=== PATIENT | male | born 1930 | race Caucasian/White ===

== ENCOUNTER 2016-12-10 07:28 | Inpatient (IN) | payer OTHER ==
[2016-12-10] VITALS (7 sets, daily range): BP systolic 95–143; BP diastolic 52–105
[~2016-12-10] VITALS: Ht 167.6 cm; Wt 63.9 kg
[~2016-12-10 07:28] MED LIST: ASPIR 8181 M1 PO; ATIVAN0.5 MG PO; LISINOPRIL30 MG PO; METFORMIN HCL500 MG PO; METOPROLOL TART25 MG PO; SIMVASTATIN10 MG PO
[2016-12-10 07:57] LABS: POINT-OF-CARE METER ID UU13113702
[2016-12-10 09:38] LABS: HEMATOCRIT 44.1 % (38.0-50.0); MCV 97.1 FL (86-99); MEAN PLAT.VOLUME 10.1 uM^3 (9.0-12.4); PLATELET COUNT 181 K/uL (156-360); RBC DIS.WIDTH-CV 12.7 % (11.8-14.6); RBC DIS.WIDTH-SD 45.2 % (39-53); RED BLOOD COUNT 4.54 M/uL (4.00-5.50); WHITE BLOOD COUNT 12.8 K/uL (4.1-10.2)
[2016-12-10 09:51] LABS: CHLORIDE 104 mEq/L (99-109); POTASSIUM 4.1 mEq/L (3.7-5.4); SODIUM 139 mEq/L (136-147)
[2016-12-10 09:53] LABS: GLUCOSE 156 mg/dL (70-99)
[2016-12-10 09:54] LABS: ANION GAP 7 MEQ/L (2-14)
[2016-12-10 09:55] LABS: TOTAL BILIRUBIN 2.1 mg/dL (0.0-1.0)
[2016-12-10 09:56] LABS: ALKALINE PHOSPHATASE 109 IU/L (3-129)
[2016-12-10 09:57] LABS: GFR ESTIMATE (CALCULATED) > 59 mL/min/
[2016-12-10 09:58] LABS: UREA NITROGEN (BUN) 10 mg/dL (9-23)
[2016-12-10 13:54] LABS: TROP-I INTERPRETATION NEGATIVE; TROPONIN-I 0.01 ng/mL (0.0-0.30)
[2016-12-10] MEDS ORDERED: CLONAZEPAM1 MG PO (13:57)
[2016-12-10] MEDS ORDERED: METOPROLOL SUCC25 MG PO (13:57)
[2016-12-10] MEDS ORDERED: SIMVASTATIN40 MG PO (13:57)
[2016-12-10] MEDS ORDERED: LITE COAT ASPI325 M1 PO (13:58)
[2016-12-10] MEDS ORDERED: PRINIVIL10 MG PO (13:58)
[2016-12-10] MEDS ORDERED: CENTRUM MEN'S1 EACH PO (13:59)
[2016-12-10 18:20] LABS: METH RESISTANT S AUREUS PCR NEGATIVE (NEGATIVE)
[2016-12-10 18:52] LABS: PROBE CHECK PASS; SPECIMEN PROCESSING CONTROL PASS
[2016-12-11] VITALS (19 sets, daily range): BP systolic 93–147; BP diastolic 45–87
[2016-12-11 06:24] LABS: EOSINOPHIL (%) 0.2 % (0-5); HEMATOCRIT 36.7 % (38.0-50.0); IMMATURE GRANULOCYTE (%) 0.3 % (0.0-0.7); INSTRUMENT ABS NEUTROPHIL CT 7.4 K/uL; LYMPHOCYTE COUNT 1.2 K/uL (1.0-2.8); MCH 32.8 PG (29.0-34.0); MCHC 33.5 G/DL (30.0-36.0); MCV 97.9 FL (86-99); MEAN PLAT.VOLUME 10.6 uM^3 (9.0-12.4); MONOCYTE COUNT 1.1 K/uL (0-0.8); NEUTROPHIL (%) 76.1 % (45-76); NEUTROPHIL COUNT 7.4 K/uL (1.8-6.4); PLATELET COUNT 156 K/uL (156-360); RBC DIS.WIDTH-CV 13.1 % (11.8-14.6); RBC DIS.WIDTH-SD 46.5 % (39-53); RED BLOOD COUNT 3.75 M/uL (4.00-5.50); WHITE BLOOD COUNT 9.8 K/uL (4.1-10.2)
[2016-12-11 06:30] LABS: ALKALINE PHOSPHATASE 95 IU/L (3-129); ANION GAP 7 MEQ/L (2-14); CHLORIDE 104 MEQ/L (99-109); DIRECT BILIRUBIN 0.6 mg/dL (0.0-0.3); GFR ESTIMATE (CALCULATED) > 59 mL/min/; GLUCOSE 170 mg/dL (70-99); POTASSIUM 4.3 MEQ/L (3.7-5.4); SAMPLE HEMOLYSIS CHECK 0; SAMPLE ICTERIC CHECK 1; SAMPLE LIPEMIA CHECK 0; SODIUM 138 MEQ/L (136-147); TOTAL BILIRUBIN 3.2 MG/DL (0.0-1.0); UREA NITROGEN (BUN) 11 mg/dL (9-23)
[2016-12-11 16:50] LABS: POINT-OF-CARE METER ID UU14174217
[2016-12-11 21:54] LABS: POINT-OF-CARE METER ID UU14149397
[2016-12-12] VITALS (7 sets, daily range): BP systolic 112–141; BP diastolic 64–78
[2016-12-12 05:54] LABS: GFR ESTIMATE (CALCULATED) > 59 mL/min/; UREA NITROGEN (BUN) 9 mg/dL (9-23)
[2016-12-12 12:09] LABS: POINT-OF-CARE METER ID UU14188577
[2016-12-12 16:13] LABS: BASE EXCESS -1.1 mEq/L (-3 to +3); BICARBONATE 22.2 mEq/L (22-26); CARBOXY HGB 2.6 % (0-5); METHEMOGLOBIN 1.8 % (0-1.5); PCO2 32 mm Hg (35-45); PO2 190 mm Hg (80-100); pH 7.45 (7.35-7.45)
[2016-12-12 16:14] LABS: COMMENTS - BLOOD GASES AC+; DEVICE NRBM; FI02 100 %; SITE RR
[2016-12-12 16:58] LABS: TROP-I INTERPRETATION POSITIVE
[2016-12-12 23:26] LABS: TROP-I INTERPRETATION POSITIVE
[2016-12-13 03:34] VITALS: BP 120/67
[2016-12-13 06:30] LABS: EOSINOPHIL (%) 0.6 % (0-5); EOSINOPHIL COUNT 0.1 K/uL (0-0.3); HEMATOCRIT 32.6 % (38.0-50.0); IMMATURE GRANULOCYTE (%) 0.4 % (0.0-0.7); INSTRUMENT ABS NEUTROPHIL CT 8.5 K/uL; LYMPHOCYTE COUNT 0.7 K/uL (1.0-2.8); MCH 33.9 PG (29.0-34.0); MCHC 35.6 G/DL (30.0-36.0); MCV 95.3 FL (86-99); MEAN PLAT.VOLUME 10.8 uM^3 (9.0-12.4); MONOCYTE (%) 10.8 % (3-12); MONOCYTE COUNT 1.1 K/uL (0-0.8); NEUTROPHIL (%) 80.8 % (45-76); NEUTROPHIL COUNT 8.5 K/uL (1.8-6.4); PLATELET COUNT 157 K/uL (156-360); RBC DIS.WIDTH-CV 12.8 % (11.8-14.6); RBC DIS.WIDTH-SD 44.5 % (39-53); RED BLOOD COUNT 3.42 M/uL (4.00-5.50); WHITE BLOOD COUNT 10.5 K/uL (4.1-10.2)
[2016-12-13 07:00] LABS: ANION GAP 8 MEQ/L (2-14); CHLORIDE 98 MEQ/L (99-109); GFR ESTIMATE (CALCULATED) > 59 mL/min/; GLUCOSE 146 mg/dL (70-99); POTASSIUM 3.5 MEQ/L (3.7-5.4); SAMPLE HEMOLYSIS CHECK 0; SAMPLE ICTERIC CHECK 1; SAMPLE LIPEMIA CHECK 0; SODIUM 134 MEQ/L (136-147); UREA NITROGEN (BUN) 13 mg/dL (9-23)
[2016-12-13 07:02] LABS: TROP-I INTERPRETATION POSITIVE; TROPONIN-I 5.39 ng/mL (0.0-0.30)
[2016-12-13 07:51] VITALS: BP 131/73
[2016-12-13 08:08] LABS: POINT-OF-CARE METER ID UU13113781
[2016-12-13 11:23] VITALS: BP 123/70
[2016-12-13 15:30] VITALS: BP 128/74
[2016-12-13 16:16] LABS: TROP-I INTERPRETATION POSITIVE; TROPONIN-I 4.56 ng/mL (0.0-0.30)
[2016-12-13 16:40] LABS: POINT-OF-CARE METER ID UU13113781
[2016-12-13 19:15] VITALS: BP 138/87
[2016-12-13 21:15] LABS: POINT-OF-CARE METER ID UU13113781
[2016-12-13 23:20] VITALS: BP 142/77
[2016-12-13 23:52] LABS: TROPONIN-I 4.37 ng/mL (0.0-0.30)
[2016-12-13 23:53] LABS: TROP-I INTERPRETATION POSITIVE
[2016-12-14 03:10] VITALS: BP 143/71
[2016-12-14 06:52] LABS: EOSINOPHIL (%) 0.7 % (0-5); EOSINOPHIL COUNT 0.1 K/uL (0-0.3); HEMATOCRIT 35.9 % (38.0-50.0); IMMATURE GRANULOCYTE (%) 0.5 % (0.0-0.7); IMMATURE GRANULOCYTE COUNT 0.1 K/uL; INSTRUMENT ABS NEUTROPHIL CT 8.1 K/uL; LYMPHOCYTE COUNT 0.5 K/uL (1.0-2.8); MCH 33.3 PG (29.0-34.0); MCHC 34.8 G/DL (30.0-36.0); MCV 95.7 FL (86-99); MEAN PLAT.VOLUME 10.8 uM^3 (9.0-12.4); MONOCYTE (%) 10.2 % (3-12); NEUTROPHIL (%) 83.6 % (45-76); NEUTROPHIL COUNT 8.1 K/uL (1.8-6.4); PLATELET COUNT 181 K/uL (156-360); RBC DIS.WIDTH-CV 12.7 % (11.8-14.6); RBC DIS.WIDTH-SD 44.4 % (39-53); RED BLOOD COUNT 3.75 M/uL (4.00-5.50); WHITE BLOOD COUNT 9.7 K/uL (4.1-10.2)
[2016-12-14 07:19] VITALS: BP 127/76
[2016-12-14 07:22] LABS: ANION GAP 13 MEQ/L (2-14); CHLORIDE 98 MEQ/L (99-109); GFR ESTIMATE (CALCULATED) > 59 mL/min/; GLUCOSE 161 mg/dL (70-99); POTASSIUM 3.4 MEQ/L (3.7-5.4); SAMPLE HEMOLYSIS CHECK 0; SAMPLE ICTERIC CHECK 1; SAMPLE LIPEMIA CHECK 0; SODIUM 139 MEQ/L (136-147); UREA NITROGEN (BUN) 20 mg/dL (9-23)
[2016-12-14 07:26] LABS: TROP-I INTERPRETATION POSITIVE; TROPONIN-I 3.18 ng/mL (0.0-0.30)
[2016-12-14 08:13] LABS: POINT-OF-CARE METER ID UU13113781
[2016-12-14 11:50] VITALS: BP 110/61
[2016-12-14 15:52] LABS: TROP-I INTERPRETATION POSITIVE; TROPONIN-I 3.22 ng/mL (0.0-0.30)
[2016-12-14 19:00] VITALS: BP 163/78
[2016-12-14 23:20] VITALS: BP 138/64
[2016-12-15 03:05] VITALS: BP 119/63
[2016-12-15 06:44] LABS: EOSINOPHIL (%) 2.7 % (0-5); EOSINOPHIL COUNT 0.2 K/uL (0-0.3); HEMATOCRIT 38.2 % (38.0-50.0); IMMATURE GRANULOCYTE (%) 0.3 % (0.0-0.7); INSTRUMENT ABS NEUTROPHIL CT 6.5 K/uL; LYMPHOCYTE COUNT 0.9 K/uL (1.0-2.8); MCH 33.4 PG (29.0-34.0); MCHC 34.8 G/DL (30.0-36.0); MEAN PLAT.VOLUME 10.5 uM^3 (9.0-12.4); MONOCYTE (%) 12.7 % (3-12); MONOCYTE COUNT 1.1 K/uL (0-0.8); NEUTROPHIL (%) 73.4 % (45-76); NEUTROPHIL COUNT 6.5 K/uL (1.8-6.4); PLATELET COUNT 233 K/uL (156-360); RBC DIS.WIDTH-CV 12.9 % (11.8-14.6); RBC DIS.WIDTH-SD 44.8 % (39-53); RED BLOOD COUNT 3.98 M/uL (4.00-5.50); WHITE BLOOD COUNT 8.8 K/uL (4.1-10.2)
[2016-12-15 07:12] LABS: ANION GAP 11 MEQ/L (2-14); CHLORIDE 99 MEQ/L (99-109); GFR ESTIMATE (CALCULATED) > 59 mL/min/; GLUCOSE 140 mg/dL (70-99); POTASSIUM 3.4 MEQ/L (3.7-5.4); SAMPLE HEMOLYSIS CHECK 0; SAMPLE ICTERIC CHECK 1; SAMPLE LIPEMIA CHECK 0; SODIUM 140 MEQ/L (136-147); UREA NITROGEN (BUN) 21 mg/dL (9-23)
[2016-12-15 07:38] VITALS: BP 125/79
[2016-12-15 12:11] VITALS: BP 125/66
[2016-12-15 15:57] VITALS: BP 129/67
[2016-12-15 18:09] VITALS: BP 109/71
[2016-12-15 23:15] VITALS: BP 168/88
[2016-12-16 04:20] VITALS: BP 150/93
[2016-12-16 05:12] LABS: CHLORIDE 104 mEq/L (99-109); SODIUM 143 mEq/L (136-147)
[2016-12-16 05:15] LABS: GLUCOSE 153 mg/dL (70-99)
[2016-12-16 05:16] LABS: ANION GAP 13 MEQ/L (2-14)
[2016-12-16 05:17] LABS: MEAN PLAT.VOLUME 10.5 uM^3 (9.0-12.4); PLATELET COUNT 275 K/uL (156-360); RBC DIS.WIDTH-SD 46.3 % (39-53); RED BLOOD COUNT 4.33 M/uL (4.00-5.50); WHITE BLOOD COUNT 10.7 K/uL (4.1-10.2)
[2016-12-16 05:18] LABS: ALKALINE PHOSPHATASE 115 IU/L (3-129); GFR ESTIMATE (CALCULATED) > 59 mL/min/
[2016-12-16 05:19] LABS: UREA NITROGEN (BUN) 25 mg/dL (9-23)
[2016-12-16 05:20] LABS: TOTAL BILIRUBIN 3.8 mg/dL (0.0-1.0)
[2016-12-16 05:28] LABS: TROP-I INTERPRETATION POSITIVE; TROPONIN-I 1.12 ng/mL (0.0-0.30)
[2016-12-16 07:52] VITALS: BP 111/70
[2016-12-16 10:12] LABS: TROPONIN-I 1.03 ng/mL (0.0-0.30)
[2016-12-16 10:13] LABS: TROP-I INTERPRETATION POSITIVE
[2016-12-16 16:37] VITALS: BP 124/64
[2016-12-16 17:53] LABS: TROP-I INTERPRETATION POSITIVE; TROPONIN-I 0.85 ng/mL (0.0-0.30)
[2016-12-16 20:25] VITALS: BP 123/73
[2016-12-17] VITALS (7 sets, daily range): BP systolic 101–165; BP diastolic 61–81
[2016-12-17 04:59] LABS: BASOPHIL COUNT 0.1 K/uL (0-0.1); EOSINOPHIL (%) 4.4 % (0-5); EOSINOPHIL COUNT 0.4 K/uL (0-0.3); HEMATOCRIT 38.2 % (38.0-50.0); IMMATURE GRANULOCYTE (%) 0.7 % (0.0-0.7); IMMATURE GRANULOCYTE COUNT 0.1 K/uL; INSTRUMENT ABS NEUTROPHIL CT 6.6 K/uL; LYMPHOCYTE COUNT 1.2 K/uL (1.0-2.8); MCHC 33.8 G/DL (30.0-36.0); MCV 97.7 FL (86-99); MEAN PLAT.VOLUME 10.5 uM^3 (9.0-12.4); MONOCYTE (%) 9.5 % (3-12); MONOCYTE COUNT 0.9 K/uL (0-0.8); NEUTROPHIL (%) 71.5 % (45-76); NEUTROPHIL COUNT 6.6 K/uL (1.8-6.4); PLATELET COUNT 286 K/uL (156-360); RBC DIS.WIDTH-SD 46.3 % (39-53); RED BLOOD COUNT 3.91 M/uL (4.00-5.50); WHITE BLOOD COUNT 9.2 K/uL (4.1-10.2)
[2016-12-17 05:16] LABS: CHLORIDE 103 mEq/L (99-109); POTASSIUM 3.6 mEq/L (3.7-5.4); SODIUM 141 mEq/L (136-147)
[2016-12-17 05:18] LABS: GLUCOSE 128 mg/dL (70-99)
[2016-12-17 05:19] LABS: ANION GAP 10 MEQ/L (2-14)
[2016-12-17 05:22] LABS: GFR ESTIMATE (CALCULATED) > 59 mL/min/
[2016-12-17 05:23] LABS: UREA NITROGEN (BUN) 30 mg/dL (9-23)
[2016-12-17 11:44] LABS: POINT-OF-CARE METER ID UU14188577
[2016-12-17 17:21] LABS: POINT-OF-CARE METER ID UU14149397
[2016-12-17 21:22] LABS: POINT-OF-CARE METER ID UU14188577
[2016-12-18 04:00] VITALS: BP 146/68
[2016-12-18 08:50] VITALS: BP 123/72
[2016-12-18 11:51] LABS: POINT-OF-CARE METER ID UU14188577
[2016-12-18 12:11] VITALS: BP 106/62
[2016-12-18 12:34] LABS: ANION GAP 12 MEQ/L (2-14); CHLORIDE 104 MEQ/L (99-109); GFR ESTIMATE (CALCULATED) > 59 mL/min/; GLUCOSE 154 mg/dL (70-99); MAGNESIUM 2.2 mg/dl (1.3-2.7); SAMPLE HEMOLYSIS CHECK 0; SAMPLE ICTERIC CHECK 0; SAMPLE LIPEMIA CHECK 0; SODIUM 140 MEQ/L (136-147); UREA NITROGEN (BUN) 25 mg/dL (9-23)
[2016-12-18 12:35] LABS: POTASSIUM 4.5 MEQ/L (3.7-5.4)
[2016-12-18 19:54] VITALS: BP 127/65
[2016-12-18 22:00] LABS: POINT-OF-CARE METER ID UU14188577
[2016-12-18 23:49] VITALS: BP 149/76
[2016-12-19 04:32] VITALS: BP 141/92
[2016-12-19 05:49] LABS: ANION GAP 9 MEQ/L (2-14); CHLORIDE 103 MEQ/L (99-109); GFR ESTIMATE (CALCULATED) > 59 mL/min/; GLUCOSE 149 mg/dL (70-99); MAGNESIUM 2.4 mg/dl (1.3-2.7); POTASSIUM 3.6 MEQ/L (3.7-5.4); SAMPLE HEMOLYSIS CHECK 0; SAMPLE ICTERIC CHECK 0; SAMPLE LIPEMIA CHECK 0; SODIUM 141 MEQ/L (136-147); UREA NITROGEN (BUN) 23 mg/dL (9-23)
[2016-12-19 11:30] VITALS: BP 122/72
[2016-12-19 15:22] VITALS: BP 123/57
[2016-12-19 19:35] VITALS: BP 101/57
[2016-12-19 23:33] VITALS: BP 114/69
[2016-12-20 03:36] VITALS: BP 119/76
[2016-12-20 05:52] LABS: ANION GAP 10 MEQ/L (2-14); CHLORIDE 103 MEQ/L (99-109); GFR ESTIMATE (CALCULATED) > 59 mL/min/; GLUCOSE 148 mg/dL (70-99); POTASSIUM 3.9 MEQ/L (3.7-5.4); SAMPLE HEMOLYSIS CHECK 0; SAMPLE ICTERIC CHECK 1; SAMPLE LIPEMIA CHECK 0; SODIUM 141 MEQ/L (136-147); UREA NITROGEN (BUN) 23 mg/dL (9-23)
[2016-12-20 07:23] VITALS: BP 130/65
[2016-12-20 11:58] LABS: POINT-OF-CARE METER ID UU14188577
[2016-12-20 15:47] VITALS: BP 105/65
[2016-12-20 19:46] VITALS: BP 112/58
[2016-12-20 22:08] LABS: POINT-OF-CARE METER ID UU14188577
[2016-12-20 23:35] VITALS: BP 111/58
[2016-12-21 06:58] LABS: POINT-OF-CARE METER ID UU14188577
[2016-12-21 07:15] LABS: BASOPHIL COUNT 0.1 K/uL (0-0.1); EOSINOPHIL (%) 3.1 % (0-5); EOSINOPHIL COUNT 0.4 K/uL (0-0.3); HEMATOCRIT 42.1 % (38.0-50.0); IMMATURE GRANULOCYTE (%) 0.9 % (0.0-0.7); IMMATURE GRANULOCYTE COUNT 0.1 K/uL; INSTRUMENT ABS NEUTROPHIL CT 9.3 K/uL; LYMPHOCYTE COUNT 1.2 K/uL (1.0-2.8); MCH 32.7 PG (29.0-34.0); MCHC 33.5 G/DL (30.0-36.0); MCV 97.7 FL (86-99); MEAN PLAT.VOLUME 10.2 uM^3 (9.0-12.4); MONOCYTE (%) 8.6 % (3-12); NEUTROPHIL (%) 76.9 % (45-76); NEUTROPHIL COUNT 9.3 K/uL (1.8-6.4); PLATELET COUNT 358 K/uL (156-360); RBC DIS.WIDTH-CV 12.6 % (11.8-14.6); RBC DIS.WIDTH-SD 45.1 % (39-53); RED BLOOD COUNT 4.31 M/uL (4.00-5.50)
[2016-12-21 07:21] LABS: ANION GAP 10 MEQ/L (2-14); CHLORIDE 102 MEQ/L (99-109); GFR ESTIMATE (CALCULATED) > 59 mL/min/; GLUCOSE 138 mg/dL (70-99); POTASSIUM 4.1 MEQ/L (3.7-5.4); SAMPLE HEMOLYSIS CHECK 0; SAMPLE ICTERIC CHECK 1; SAMPLE LIPEMIA CHECK 0; SODIUM 141 MEQ/L (136-147); UREA NITROGEN (BUN) 25 mg/dL (9-23)
[2016-12-21 08:02] VITALS: BP 122/56
[2016-12-21 11:38] VITALS: BP 110/64
[2016-12-21 11:43] LABS: POINT-OF-CARE METER ID UU14188577
[2016-12-21] MEDS ORDERED: TYLENOL REGULA325 MG PO (12:54)
[2016-12-21] MEDS ORDERED: LOPRESSOR25 MG PO (12:54)
[2016-12-21] MEDS ORDERED: IMDUR30 MG PO (12:54)
[2016-12-21] MEDS ORDERED: LISINOPRIL2.5 MG PO (12:54)
[2016-12-21] MEDS ORDERED: MIRTAZAPINE15 MG PO (12:55)
[2016-12-21] MEDS ORDERED: MAG-AL PLUS SUS30 ML PO (12:55)
[2016-12-21] MEDS ORDERED: FUROSEMIDE40 MG PO (12:55)
[2016-12-21] MEDS ORDERED: K-DUR20 MEQ PO (12:55)
[2016-12-21] MEDS ORDERED: DOCUSATE SODIU100 MG PO (12:56)
[2016-12-21] MEDS ORDERED: POLYETHYLENE GL17 GM PO (12:56)
[2016-12-21] MEDS ORDERED: BISAC-EVAC10 MG PR (12:56)
[2016-12-21] MEDS ORDERED: ONDANSETRON ODT4 MG PO (12:56)
[2016-12-21] MEDS ORDERED: SENNA LAX8.6 MG PO (12:56)
[2016-12-21] MEDS ORDERED: FAMOTIDINE20 MG PO (12:56)
[2016-12-21] MEDS ORDERED: CLONAZEPAM0.5 MG PO (12:58)
[2016-12-21] MEDS ORDERED: PRAVASTATIN SOD10 MG PO (13:01)
== END 2016-12-21 15:38 | DRG 183 ==
LOC: EME → EDBD 07:28 → 3EAST 14:12 → EDOF 14:12 → 4EAST 14:12 → 4WEST 14:12 → 3EAST 12-11 17:32 → 4EAST 12-12 21:41 → 3EAST 12-15 17:51
PROVIDERS: Emergency Medicine; Family Medicine; Internal Medicine; Internal Medicine Cardiovascular Disease; Internal Medicine Pulmonary Disease; Nurse Practitioner Family; Surgery
DX: S22.20XA Unspecified fracture of sternum, initial encounter for closed fracture (principal); I21.3 ST elevation (STEMI) myocardial infarction of unspecified site; I50.41 Acute combined systolic (congestive) and diastolic (congestive) heart failure; S26.91XA Contusion of heart, unspecified with or without hemopericardium, initial encounter; I24.9 Acute ischemic heart disease, unspecified; S32.028A Other fracture of second lumbar vertebra, initial encounter for closed fracture; F03.90 Unspecified dementia, unspecified severity, without behavioral disturbance, psychotic disturbance, mood disturbance, and anxiety; F05 Delirium due to known physiological condition; J90 Pleural effusion, not elsewhere classified; I11.0 Hypertensive heart disease with heart failure; I50.20 Unspecified systolic (congestive) heart failure; S27.892A Contusion of other specified intrathoracic organs, initial encounter; V44.5XXA Car driver injured in collision with heavy transport vehicle or bus in traffic accident, initial encounter; R45.1 Restlessness and agitation; Y92.414 Local residential or business street as the place of occurrence of the external cause; S80.01XA Contusion of right knee, initial encounter; S70.01XA Contusion of right hip, initial encounter; E11.9 Type 2 diabetes mellitus without complications; Z79.4 Long term (current) use of insulin; Z79.84 Long term (current) use of oral hypoglycemic drugs; I25.10 Atherosclerotic heart disease of native coronary artery without angina pectoris; I25.2 Old myocardial infarction; E78.5 Hyperlipidemia, unspecified; F41.9 Anxiety disorder, unspecified; F32.9 Major depressive disorder, single episode, unspecified; R41.3 Other amnesia; R26.2 Difficulty in walking, not elsewhere classified; R53.1 Weakness; R09.02 Hypoxemia; N40.0 Benign prostatic hyperplasia without lower urinary tract symptoms; Z87.891 Personal history of nicotine dependence; M06.9 Rheumatoid arthritis, unspecified; J32.1 Chronic frontal sinusitis; K57.30 Diverticulosis of large intestine without perforation or abscess without bleeding; I77.811 Abdominal aortic ectasia; F40.240 Claustrophobia; S06.9X0A Unspecified intracranial injury without loss of consciousness, initial encounter; I35.0 Nonrheumatic aortic (valve) stenosis; I27.2 Other secondary pulmonary hypertension; G47.00 Insomnia, unspecified
CPT/HCPCS: 36600; 70450; 71010; 71020; 71250; 71260; 72125; 72129; 72132; 72170; 73564; 74177; 80048; 80053; 81003; 82248; 82565; 82747 90; 82803; 82948; 83605; 83735; 84425 90; 84484; 84520; 85025; 85027; 87040; 87641; 92523 GN; 93005; 93306; 94640; 94799; 97530 GO; 97530 GP; 97532 GN; 99202; 99281; 99285; J1630; J1815; J1940; J2270; J7030

== ENCOUNTER 2017-12-19 16:24 | Emergency (ER) | payer OTHER ==
[~2017-12-19] VITALS: Ht 167.6 cm; Wt 69.0 kg
[~2017-12-19 16:24] MED LIST changes: +BISAC-EVAC10 MG PR; +CENTRUM MEN'S1 EACH PO; +CLONAZEPAM0.5 MG PO; +CLONAZEPAM1 MG PO; +DOCUSATE SODIU100 MG PO; +FAMOTIDINE20 MG PO; +FUROSEMIDE40 MG PO; +IMDUR30 MG PO; +K-DUR20 MEQ PO; +LISINOPRIL2.5 MG PO; +LITE COAT ASPI325 M1 PO; +LOPRESSOR25 MG PO; +MAG-AL PLUS SUS30 ML PO; +METOPROLOL SUCC25 MG PO; +MIRTAZAPINE15 MG PO; +ONDANSETRON ODT4 MG PO; +POLYETHYLENE GL17 GM PO; +PRAVASTATIN SOD10 MG PO; +PRINIVIL10 MG PO; +SENNA LAX8.6 MG PO; +SIMVASTATIN40 MG PO; +TYLENOL REGULA325 MG PO
[2017-12-19 17:24] LABS: BASOPHIL (%) 0.3 % (0-1); EOSINOPHIL (%) 4.2 % (0-5); EOSINOPHIL COUNT 0.3 K/uL (0-0.3); HEMATOCRIT 40.8 % (38.0-50.0); HEMOGLOBIN 14.2 G/DL (12.5-16.6); IMMATURE GRANULOCYTE (%) 0.5 % (0.0-0.7); LYMPHOCYTE (%) 19.6 % (15-42); LYMPHOCYTE COUNT 1.3 K/uL (1.0-2.8); MCH 33.1 PG (29.0-34.0); MCHC 34.8 G/DL (30.0-36.0); MCV 95.1 FL (86-99); MONOCYTE (%) 9.3 % (3-12); MONOCYTE COUNT 0.6 K/uL (0-0.8); NEUTROPHIL (%) 66.1 % (45-76); NEUTROPHIL COUNT 4.4 K/uL (1.8-6.4); PLATELET COUNT 183 K/uL (156-360); RBC DIS.WIDTH-CV 13.2 % (11.8-14.6); RBC DIS.WIDTH-SD 46.3 % (39-53); RED BLOOD COUNT 4.29 M/uL (4.00-5.50); WHITE BLOOD COUNT 6.6 K/uL (4.1-10.2)
[2017-12-19] MEDS ORDERED: PREDNISONE50 MG PO (18:26)
[2017-12-19] MEDS ORDERED: KEFLEX500 MG PO (18:26)
[2017-12-19 18:38] VITALS: BP 125/72
== END 2017-12-19 18:40 | disposition home or self-care (01) ==
LOC: EME 16:24
PROVIDERS: Emergency Medicine
DX: L03.114 Cellulitis of left upper limb (principal); F32.9 Major depressive disorder, single episode, unspecified; I10 Essential (primary) hypertension; I25.2 Old myocardial infarction; F41.9 Anxiety disorder, unspecified; Z79.82 Long term (current) use of aspirin; Z79.84 Long term (current) use of oral hypoglycemic drugs; Z87.891 Personal history of nicotine dependence
CPT/HCPCS: 85025; 99281; 99285; J1200; J2930; S0028